=== PATIENT | male | born 1985 | race Caucasian/White ===

== ENCOUNTER 2016-11-16 19:33 | Emergency (ER) | payer OTHER ==
[~2016-11-16] VITALS: Ht 182.9 cm; Wt 70.0 kg
[~2016-11-16 19:33] MED LIST: NOHOMEMEDS
[2016-11-16 20:48] LABS: BASOPHIL COUNT 0.1 K/uL (0-0.1); EOSINOPHIL COUNT 0.2 K/uL (0-0.3); HEMATOCRIT 40.2 % (38.0-50.0); IMMATURE GRANULOCYTE (%) 0.3 % (0.0-0.7); INSTRUMENT ABS NEUTROPHIL CT 3.5 K/uL; LYMPHOCYTE COUNT 2.6 K/uL (1.0-2.8); MCH 30.8 PG (29.0-34.0); MCHC 34.8 G/DL (30.0-36.0); MCV 88.4 FL (86-99); MEAN PLAT.VOLUME 11.2 uM^3 (9.0-12.4); MONOCYTE (%) 9.2 % (3-12); MONOCYTE COUNT 0.7 K/uL (0-0.8); NEUTROPHIL (%) 49.2 % (45-76); NEUTROPHIL COUNT 3.5 K/uL (1.8-6.4); PLATELET COUNT 197 K/uL (156-360); RBC DIS.WIDTH-CV 11.7 % (11.8-14.6); RBC DIS.WIDTH-SD 37.6 % (39-53); RED BLOOD COUNT 4.55 M/uL (4.00-5.50); WHITE BLOOD COUNT 7.1 K/uL (4.1-10.2)
[2016-11-16 20:56] LABS: CHLORIDE 105 mEq/L (99-109); POTASSIUM 3.8 mEq/L (3.7-5.4); SODIUM 139 mEq/L (136-147)
[2016-11-16 20:58] LABS: GLUCOSE 78 mg/dL (70-99)
[2016-11-16 21:00] LABS: ANION GAP 8 MEQ/L (2-14)
[2016-11-16 21:02] LABS: GFR ESTIMATE (CALCULATED) > 59 mL/min/
[2016-11-16 21:03] LABS: UREA NITROGEN (BUN) 10 mg/dL (9-23)
[2016-11-16 21:08] LABS: TROP-I INTERPRETATION NEGATIVE; TROPONIN-I < 0.01 ng/mL (0.0-0.30)
[2016-11-16 22:35] LABS: D-DIMER ELISA < 150.00 ng/mLDDU (<230)
[2016-11-16 23:30] VITALS: BP 107/66
== END 2016-11-16 23:28 | disposition home or self-care (01) ==
LOC: EME 19:33
PROVIDERS: Emergency Medicine
DX: R07.89 Other chest pain (principal); I45.10 Unspecified right bundle-branch block; Z87.891 Personal history of nicotine dependence; F12.90 Cannabis use, unspecified, uncomplicated
CPT/HCPCS: 71020; 80048; 84484; 85025; 85379; 93005; 99281; 99285; J1885